=== PATIENT | female | born 1990 | race Caucasian/White ===

== ENCOUNTER 2016-09-22 14:37 | Inpatient (IN) | payer OTHER ==
[~2016-09-22] VITALS: Ht 167.6 cm; Wt 81.6 kg
[2016-09-23 11:16] LABS: *URINE HCG, QUAL NEGATIVE (NEGATIVE)
[2016-09-23 11:26] LABS: *AMPHETAMINE, URINE POSITIVE (NEGATIVE); *BARBITURATE, URINE NEGATIVE (NEGATIVE); *CANNABINOID, URINE NEGATIVE (NEGATIVE); *COCCAINE, URINE NEGATIVE (NEGATIVE); *OPIATE, URINE POSITIVE (NEGATIVE); *PHENCYCLIDINE SCREEN,URINE NEGATIVE (NEGATIVE)
[2016-09-23 11:40] VITALS: BP 117/67
--- NOTE | 2016-09-23 11:40 | NUR ---
INTAKE ASSESSMENT Patient is 25yo female patient presented for admission for supervised withdrawal from heroin and meth. Vital signs: 117/67, HR 75, R 18, 02 sat 96% RA, pain 7/10. Patient complains body aches and states "I am starting to get sick." Denies tremors, sweating, n/v at this time. Nicole routines explained to patient (i.e q4h vital, medication handling including narcotics , disposal of any contraband. Patient was tearful when informed about q4hr vital signs as she has problem sleeping. Patient was informed that the Md will be notified of her concern. Patient appears to be stable to proceed with her admission to [facility] for further care. Addendum: 09/23/16 at 1213 by SANIA COTTO RN Patient has no home meds.
--- NOTE | 2016-09-23 12:30 | NUR ---
ADMISSION NOTE Patient is 25 yr old female admitted at 11:40am for supervised opiate withdrawal. Patient is alert and oriented X4, full code, allergic to sulfa drugs, penicillin and amoxicillin. On fall precaution, no history of seizure. Denies SOB, chest pain, skin is intact. Patient has old scars on the bilateral anterior aspect of feet, pt. states a glass landed on both feet few years ago). Gait is steady and ambulates independently. Patient is able to respond to questions, cooperative during the admission interview. Denies suicidal or homicidal ideation at this time. Initial COWS is 8. Complained of body aches 9/10, anxiety, stomach cramps, restlessness, mild tremors. Patient was oriented to unit, room and call lights, oriented to unit routines and activity groups, and provided with hygiene supplies. Pt stated he has no PCP at this time. Substance use history per patient report: 1) Heroin - Patient started using at age 20. Patient was using 1gram/day since 11/2015 by inhalation. Last use was 09/22/16, used 0.5 gram. 2) Meth - Patient started using at age 25. Patient was using 0.3 gram/day since 01/2016 by inhalation. Last use was 09/21/16, used 0.3 gram. Rehab history: 1) [facility] in [place] for 9/5 months starting Nov 2013. 2) Patient reports she attended other rehab programs but could not recall the names of facilities and dates.
[2016-09-23] MEDS ORDERED: ONDANSETRON 4 MG/2 ML VIAL IM PRN (12:45)
[2016-09-23] MEDS ORDERED: diphenhydrAMINE 50 MG CAPSULE PO PRN (12:45)
[2016-09-23] MEDS ORDERED: ACETAMINOPHEN 325 MG TABLET PO PRN (12:45)
[2016-09-23] MEDS ORDERED: BUPRENORPHINE HCL 2 MG TAB.SUBL SL PRN (12:45)
[2016-09-23] MEDS ORDERED: LOPERAMIDE HCL 2 MG CAPSULE PO PRN ×2 (12:45)
[2016-09-23] MEDS ORDERED: MAGNESIUM HYDROXIDE 30 ML LIQUID UDC PO PRN (12:45)
[2016-09-23] MEDS ORDERED: MIRALAX 17 GM POWD.PACK PO PRN (12:45)
[2016-09-23] MEDS ORDERED: MAG HYDROX/AL HYDROX/SIMETH 30 ML LIQUID UDC PO PRN (12:45)
[2016-09-23] MEDS: HYDROXYZINE PAMOATE 25 MG CAPSULE PO PRN (15:12)
[2016-09-23] MEDS: GABAPENTIN 300 MG CAPSULE PO SCH (15:12)
[2016-09-23] MEDS: METHOCARBAMOL 750 MG TABLET PO PRN (15:13)
[2016-09-23] MEDS: ONDANSETRON ODT 4 MG TAB.RAPDIS SL PRN (15:13)
--- NOTE | 2016-09-23 15:13 | NUR ---
PRN VISTARIL, ROBAXIN AND ONDANSETRON Patient complained of anxiety, sweating, body aches 9/10 and nausea. COWS is 9 at this time. Will continue to monitor patient.
[2016-09-23 15:31] LABS: BASOPHILS % (AUTO) 0.3 % (0.0-2.0); EOSINOPHILS # (AUTO) 0.1 K/uL (0.0-0.7); EOSINOPHILS % (AUTO) 0.9 % (0.0-7.0); HEMATOCRIT 41.1 % (37-47); HEMOGLOBIN 14.2 G/DL (12.0-16.0); LYMPHOCYTES # (AUTO) 2.1 K/uL (20.0-40.0); LYMPHOCYTES % (AUTO) 26.3 % (20.5-51.5); MEAN CORPUSCULAR HEMOGLOBIN 31.2 UUG (27.0-31.0); MEAN CORPUSCULAR HGB CONC 35 g/dL (32.0-37.0); MEAN CORPUSCULAR VOLUME 90.2 FL (81.0-99.0); MONOCYTES # (AUTO) 0.7 K/uL (2.0-10.0); MONOCYTES % (AUTO) 8.7 % (0.0-11.0); NEUTROPHILS # (AUTO) 5.2 K/uL (1.8-8.9); NEUTROPHILS % (AUTO) 63.8 % (38.5-71.5); PLATELET COUNT (AUTO) 260 K/UL (150-450); RED BLOOD CELL COUNT(AUTO) 4.56 MIL/UL (4.2-5.4); WHITE BLOOD COUNT (AUTO) 8.1 K/UL (4.0-11.2)
[2016-09-23 15:59] LABS: ALANINE AMINOTRANSFERASE 15 U/L (14-59); ALKALINE PHOSPHATASE 54 U/L (50-136); ASPARTATE AMINOTRANSFERASE 17 U/L (15-37); BILIRUBIN,TOTAL 0.3 mg/dL (0.2-1.0); CARBON DIOXIDE 28 mmol/L (21-32); CHLORIDE 107 mmol/L (98-107); CREATININE 0.9 mg/dL (0.6-1.3); GFR 76 mL/min (>60); GLUCOSE 87 mg/dL (74-106); MAGNESIUM 1.8 mg/dL (1.8-2.4); POTASSIUM 3.6 mmol/L (3.5-5.1); SODIUM SERUM 144 mmol/L (136-145); UREA NITROGEN, BLOOD 13 mg/dL (7-18)
[2016-09-23 16:00] VITALS: BP 108/57
[2016-09-23 16:07] LABS: ETHANOL < 3 MG/DL (0-0); THYROID STIMULATING HORMONE 1.182 mIU/mL (0.358-3.740)
--- NOTE | 2016-09-23 16:10 | NUR ---
REASSESSMENT (PRN VISTARIL, ROBAXIN AND ONDANSETRON) Patient reports anxiety is about the same, body aches is now 6/10 and nausea improved.
[2016-09-23] MEDS: CLONIDINE HCL 0.1 MG TABLET PO PRN (16:48)
--- NOTE | 2016-09-23 16:48 | NUR ---
PRN CLONIDINE Patient complains of anxiety. Vital signs: 108/57, HR 71. Will continue to monitor patient.
--- NOTE | 2016-09-23 17:45 | NUR ---
REASSESSMENT PRN CLONIDINE Patient is laying in bed with eyes closed, no respiratory distress noted. PRN effective.
[2016-09-23 18:15] LABS: HIV-1 p24 ANTIGEN NON REACTIVE (NONREACTIVE); HIV-1/2 ANTIBODY NON REACTIVE (NONREACTIVE)
--- NOTE | 2016-09-23 18:41 | NUR ---
END OF SHIFT Patient is 25 yr old female admitted for supervised opiate and methamphetamine withdrawals. Patient is alert and oriented X4, full code, allergic to sulfa drugs, penicillin and amoxicillin. On fall precaution, no history of seizure. Denies SOB, chest pain, skin is intact, gait is steady and ambulates independently. Most recent assessment: COWS: 9 (pt. reports anxiety, sweating and body aches. Patient is laying in her bed for the most part. PRN robaxin, ondansetron, vistaril and clonidine given. No BM since admission. Able to eat about 25% lunch and 50%. All needs met. 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
--- NOTE | 2016-09-23 19:55 | NUR ---
Start of Shift Note: Report received from day shift nurse. Pt is a 25 yo female admitted on 09/23/16 for medically-supervised withdrawal from opiates and methamphetamines. Pt reports drinking 750mL to 1.5L rum daily for 4 months. Pt also reports daily use of marijuana. Pt is to start a 4-day Subutex taper tomorrow morning. Last day shift COWS=9. Pt reports allergy to PCN, sulfa, amoxicillin. Pt is on a regular diet. Pt reports med hx: anxiety. Pt received in room with c/o anxiety and chills, noted to be diaphoretic, flushed, pupils 5mm. Bed is in low position and locked, side rails up x2, call light within reach. Will continue to monitor. Addendum: 09/25/16 at 0539 by LENARD PRESLEY RN Incorrect substance use hx: pt using heroin 1gm/day for 11 months and methamphetamine 0.3gm/day for 9 months. No MJ Hx.
[2016-09-23 20:00] VITALS: BP 92/48
[2016-09-23] MEDS ORDERED: GABAPENTIN 300 MG CAPSULE PO SCH (21:00)
[2016-09-23] MEDS: TRAZODONE 50 MG TABLET PO PRN (21:06)
--- NOTE | 2016-09-23 21:06 | NUR ---
PRN Trazodone: Patient complains of inability to sleep. Non-pharmacological measures not effective. Administered PRN Trazodone as ordered. Will continue to monitor.
--- NOTE | 2016-09-23 22:06 | NUR ---
PRN Reassessment: Patient is in bed with eyes closed. Respirations are even and unlabored. No s/s of acute distress noted. PRN Trazodone effective as evidenced by patient's ability to rest. Will continue to monitor.
[2016-09-24] VITALS (7 sets, daily range): BP systolic 95–127; BP diastolic 62–96
--- NOTE | 2016-09-24 | NUR ---
COWS Deferred: Ordered COWS Q4HWA deferred while patient sleeps. VS: 98.1, 71, 14, 99%, 120/69. All safety precautions are in place. Will continue to monitor. Addendum: 09/24/16 at 0040 by LENARD PRESLEY RN Amended: Links added.
--- NOTE | 2016-09-24 04:00 | NUR ---
COWS Deferred: COWS is deferred for sleep. V/S stable. All safety precautions are in place. Will continue to monitor. Addendum: 09/24/16 at 0547 by LENARD PRESLEY RN Amended: Links added.
--- NOTE | 2016-09-24 07:09 | NUR ---
End of Shift Note: Pt is a 25 yo female admitted to [facility] on 09/23/16 for medically-supervised withdrawal from opiates and methamphetamine. Pt reports PMHx: anxiety. Pt reports allergy to PCN, sulfa, amoxicillin. Pt is on a regular diet. Pt reports drinking 750-1500mL rum daily for 4 months. Pt also reports daily use of marijuana. Pt is to start a 4-day Subutex taper today. Scheduled medication regime managed s/s of withdrawal this shift and PRN Benadryl was given for inability to sleep. Last COWS=6 at 20:00. V/S stable throughout shift. Total fluid intake this shift: 396 ml; output: urine x 0 and BM x 0. Pt currently in bed and 11 hours this shift. Pt endorsed to day shift nurse. Addendum: 09/25/16 at 0539 by LENARD PRESLEY RN Incorrect substance use hx: pt using heroin 1gm/day for 11 months and methamphetamine 0.3gm/day for 9 months. No MJ Hx.
--- NOTE | 2016-09-24 07:30 | NUR ---
Start of shift note; Received report from night nurse. Patient is a 25 year old female admitted on 09/23/16 for Heroin and Methamphetamine dependence. Patient was placed on 4 day Subutex taper to start today. Patient reported history of anxiety. Patient is allergic to Sulfa drugs, Amoxicillin and Penicillin. ON full code status and on regular diet. Patient is on fall precaution. Bed in lowest position, call light within reach. Will continue to monitor patient.
[2016-09-24] MEDS: BUPRENORPHINE HCL 2 MG TAB.SUBL SL SCH ×3 (08:53→21:07)
[2016-09-24] MEDS: DOCUSATE SODIUM 250 MG CAPSULE PO SCH (08:53)
[2016-09-24] MEDS: MULTIVITAMINS,THERAPEUTIC TABLET PO SCH (08:53)
[2016-09-24] MEDS: GABAPENTIN 300 MG CAPSULE PO SCH ×3 (08:53→21:07)
[2016-09-24] MEDS ORDERED: TUBERCULIN,PURIF.PROT.DERIV. 5 TU/0.1 ML TEST ID ONE (09:00)
[2016-09-24] MEDS ORDERED: 4 DAY TAPER BUPRENORPHINE -SERENITY PROTOCOL SL PRN (09:00)
[2016-09-24] MEDS: HYDROXYZINE PAMOATE 25 MG CAPSULE PO PRN ×2 (09:12→21:07)
[2016-09-24] MEDS: METHOCARBAMOL 750 MG TABLET PO PRN ×2 (09:12→21:07)
[2016-09-24] MEDS: CLONIDINE HCL 0.1 MG TABLET PO PRN ×3 (09:12→23:01)
--- NOTE | 2016-09-24 09:12 | NUR ---
PRN medications; Patient appears to be anxious and agitated, complaining of chills, diaphoreses, muscle aches and slight tremors with current COWS score of 12. PRN Clonidine 0.1mg PO PRN given for agitation, chills and diaphoreses. PRN Robaxin 750mg PO PRN given for muscle aches and PRN Vistaril PO PRN given given for anxiety. Will continue to monitor for effectiveness of medication.
--- NOTE | 2016-09-24 10:12 | NUR ---
Re-assessment; Patient appears to be less agitated, decrease in chills, sweating, muscle aches noted. PRN medications were effective. Will continue to monitor patient.
[2016-09-24 13:06] LABS: HCV AB <0.1 s/co ratio (0.0-0.9); HEPATITIS B CORE AB, IgM Negative (Negative); HEPATITIS B SURFACE AG Negative (Negative)
[2016-09-24] MEDS: BACLOFEN 20 MG TABLET PO SCH ×2 (14:34→16:44)
--- NOTE | 2016-09-24 16:44 | NUR ---
PRN medication; Patient noted to be agitated, complaining of chills and diaphoresis. PRN Clonidine 0.1mg PO PRN given. Will continue to monitor patient.
--- NOTE | 2016-09-24 17:44 | NUR ---
Re-assessment; Patient appears to be calm and verbalized decrease in chills and diaphoresis. PRN medication is effective.
--- NOTE | 2016-09-24 18:12 | NUR ---
End of shift note; Patient is AOX4. Patient is a 25 year old female admitted on 09/23/16 for Heroin and Methamphetamine dependence. Patient was placed on 4 day Subutex taper to start today. Patient reported history of anxiety. Patient is allergic to Sulfa drugs, Amoxicillin and Penicillin. On full code status and on regular diet. Patient is on fall precaution. Patient remained compliant with treatment plan. Medications were effective in reducing withdrawal symptoms. Met all needs.
--- NOTE | 2016-09-24 20:00 | NUR ---
Start of Shift Note: Report received from day shift nurse. Pt is a 25 yo female admitted for medically-supervised withdrawal from opiates and methamphetamine. Pt reports using 1gm heroin daily for 11 months and 0.3gm daily for 9 months. Pt is on day 1 of a 4-day Subutex taper. Pt received with last day shift COWS=7, and PRN's Clonidine x2, Robaxin, and Vistaril were given during day shift. New order for routine Baclofen today. Pt reports allergy to PCN, sulfa, amoxicillin. Pt is on a regular diet. Pt reports med hx: anxiety. Pt received in room and reports anxiety, diaphoresis, chills, lower back myalgia, restlessness, and tremor. Bed is in low position and locked, side rails up x2, call light within reach. Will continue to monitor.
[2016-09-24] MEDS: TRAZODONE 50 MG TABLET PO PRN (21:07)
--- NOTE | 2016-09-24 21:09 | NUR ---
PRN's Robaxin, Vistaril, and Trazodone: Patient complains of myalgia in lower back. Administered PRN Robaxin as ordered. Patient complains of increased anxiety. Non-pharmacological measures not effective. Administered PRN Vistaril as ordered. Patient complains of inability to sleep. Administered PRN Trazodone as ordered. Will continue to monitor.
--- NOTE | 2016-09-24 22:10 | NUR ---
PRN Reassessment: Patient reports that myalgia in back is now at a manageable level. PRN Robaxin effective. Patient reports that she is still feeling mildly anxious, and it is preventing sleep. PRN's Vistaril and Trazodone not effective. Non-pharmacological measures for anxiety reduction encouraged, and will administer PRN Clonidine when available from Q6H last dose.
[2016-09-24] MEDS: ONDANSETRON ODT 4 MG TAB.RAPDIS SL PRN (23:01)
--- NOTE | 2016-09-24 23:03 | NUR ---
PRN Zofran and PRN Clonidine: Patient complains of nausea. Pt denies any episodes of emesis. Administered PRN Zofran ODT as ordered. Patient complains of increased anxiety. Administered PRN Clonidine as ordered. Will continue to monitor.
--- NOTE | 2016-09-24 23:35 | NUR ---
PRN Zofran Reassessment: Patient denies nausea at this time. PRN Zofran ODT effective. Will continue to monitor.
[2016-09-25] VITALS: BP 95/50
--- NOTE | 2016-09-25 | NUR ---
COWS Deferred: COWS assessment is deferred for sleep. V/S stable at this time. All safety precautions are in place. Will continue to monitor. Addendum: 09/25/16 at 0221 by LENARD PRESLEY RN Amended: Links added.
--- NOTE | 2016-09-25 00:05 | NUR ---
PRN Clonidine Reassessment: Patient is in bed with eyes closed. Respirations are even and unlabored. No s/s of acute distress noted. PRN Clonidine effective as evidenced by patient's ability to rest. Will continue to monitor.
[2016-09-25 04:00] VITALS: BP 94/55
--- NOTE | 2016-09-25 04:00 | NUR ---
COWS Deferred: COWS assessment is deferred for sleep. V/S stable. No acute distress noted. All safety precautions are in place. Will continue to monitor. Addendum: 09/25/16 at 0521 by LENARD PRESLEY RN Amended: Links added.
--- NOTE | 2016-09-25 06:59 | NUR ---
End of Shift Note: Pt is a 25 yo female admitted on 09/23/16 for medically-supervised withdrawal from opiates and methamphetamine. Pt reports using 1gm heroin daily for 11 months and 0.3gm methamphetamine daily for 9 months. Pt is to start day 2 of a 4-day Subutex taper. Scheduled medication regime managed s/s of withdrawal this shift, in addition to PRN Clonidine and PRN Vistaril for anxiety, PRN Robaxin for myalgia, and PRN Zofran for nausea. PRN Trazodone was given for inability to sleep. Last COWS=8 at 20:00. V/S stable throughout shift, with elevated HR of 86 at 20:00. Total fluid intake this shift: 591 ml; output: urine x 1 and BM x 0. Pt currently in bed and 6 hours this shift. Pt endorsed to day shift nurse.
--- NOTE | 2016-09-25 07:00 | NUR ---
Start of Shift Notes: Received patient in her room. Alert and oriented x 4. Verbally responsive. Able to make his needs known. Respirations even and unlabored. No SOB noted. Skin warm and dry to touch. Abdomen soft and non-distended. BS (+) in all 4 quadrants. No complains of N/V/D or constipation noted. Voids independently. Ambulatory ad ann marie with steady gait. Patient is a 25 year old female admitted for opiate and methamphetamine dependence who was placed on a 4-day Subutex taper as ordered. No adverse reactions noted. Has past medical hx of anxiety. FULL CODE. Regular diet. Allergic to sulfa, PCN and amoxicillin. Educated patient on her current plan of care for the day and her medication regimen. Encouraged oral fluid intake and encouraged group participation to learn new skills to prevent relapse. Will continue to monitor closely.
[2016-09-25 08:00] VITALS: BP 107/63
[2016-09-25] MEDS: GABAPENTIN 300 MG CAPSULE PO SCH ×3 (08:53→21:39)
[2016-09-25] MEDS: DOCUSATE SODIUM 250 MG CAPSULE PO SCH (08:53)
[2016-09-25] MEDS: MULTIVITAMINS,THERAPEUTIC TABLET PO SCH (08:53)
[2016-09-25] MEDS: BACLOFEN 20 MG TABLET PO SCH ×3 (08:53→16:29)
[2016-09-25] MEDS ORDERED: BUPRENORPHINE HCL 2 MG TAB.SUBL SL SCH (09:00)
[2016-09-25 12:00] VITALS: BP 125/71
[2016-09-25] MEDS: CLONIDINE HCL 0.1 MG TABLET PO PRN ×2 (13:43→22:43)
--- NOTE | 2016-09-25 13:44 | NUR ---
Clonidine 0.1mg PO given: Patient noted with complain anxiety, agitation, and chills. VS stable. Unable to be redirected with non-pharmacological intervention. Medicated patient with Clonidine 0.1mg PO as ordered. Will monitor for effectiveness.
[2016-09-25] MEDS: BUPRENORPHINE HCL 2 MG TAB.SUBL SL SCH ×2 (14:15→21:40)
[2016-09-25 16:00] VITALS: BP 117/73
[2016-09-25] MEDS: HYDROXYZINE PAMOATE 25 MG CAPSULE PO PRN (16:29)
--- NOTE | 2016-09-25 16:30 | NUR ---
Vistaril 50 mg PO given: Patient noted with complain of anxiety. PRN Clonidine was ineffective. VS stable. Medicated patient with Vistaril 50 mg PO as ordered. Will monitor for effectiveness.
--- NOTE | 2016-09-25 17:30 | NUR ---
Re-assessment: Per patient, PRN Vistaril was effective in reducing patient's anxiety.
--- NOTE | 2016-09-25 18:43 | NUR ---
End of Shift Notes: Patient is a 25 year old female admitted for opiate and methamphetamine depedence who was placed on a 4-day Subutex taper as ordered. No adverse reactions noted. Has past medical hx of anxiety. Prior to admission, patient was using 1 gram of Heroin daily and 0.3 grams of methamphetamine daily. VS monitored closely. No significant abnormalities noted. Withdrawal symptoms were closely monitored. Patient presented with anxiety, chills, hot flashes, sweats, muscle aches and pains. Initial COWS 5, Last COWS 5. Medicated patient with Clonidine 0.1mg PO at 1340 for anxiety, chills and agitation with help after 1 hour. Vistaril PO was given at 1630 due to anxiety with help after 1 hour. Per patient, Subutex has been helping her with her withdrawal symptoms. Patient was able to participate in group. Oral fluids encouraged. All needs met and attended. Will continue to monitor closely.
[2016-09-25 20:00] VITALS: BP 120/76
--- NOTE | 2016-09-25 20:00 | NUR ---
Start of Shift Pt is a 25 year old female admitted for Opiate/meth dependence, placed on 4 day Subutex taper. Pt reported using Heroin 1/g daily and Meth 0.3g/daily. PMH: Anxiety. Pt is allergic to PCN, Sulfa , Amoxicillin. Upon assessment, pt presents with anxiety, chills, muscle aches, restlessness, and tremors felt upon touch, skin flushed/clammy, respirations even/unlabored, denies SOB/chest pain, denies n/v/d, bowel sounds active x4, abdomen soft. Safety measures in place, call light within reach, side rails up x2, bed locked and in low position. Will continue to monitor.
[2016-09-25] MEDS: IBUPROFEN 600 MG TABLET PO PRN (21:48)
[2016-09-25] MEDS: METHOCARBAMOL 750 MG TABLET PO PRN (21:48)
--- NOTE | 2016-09-25 21:48 | NUR ---
PRN Administration Pt reported muscle aches and back pain rated 7/10. Robaxin 750mg PRN and Motrin 600mg PRN administered. Safety measures in place, will continue to monitor.
[2016-09-25] MEDS: TRAZODONE 50 MG TABLET PO PRN (22:41)
--- NOTE | 2016-09-25 22:43 | NUR ---
PRN Reassessment/PRN Administration Upon Reassessment, Pt rated back pain 4/10 and subsiding. Pt reports mild relief of muscle aches, reports feeling anxiety with restlessness and difficulty falling asleep. Trazodone 50mg PRN and Clonidine 0.1 mg PRN administered. Safety measures in place, will continue to monitor.
--- NOTE | 2016-09-25 23:43 | NUR ---
PRN Reassessment Upon reassessment, pt is in bed, eyes closed, resting with respirations even and unlabored, no acute s/s of distress noted. Safety measures in place, will continue to monitor.
[2016-09-26] VITALS: BP 112/60
[2016-09-26] MEDS: HYDROXYZINE PAMOATE 25 MG CAPSULE PO PRN ×2 (00:44→20:03)
--- NOTE | 2016-09-26 00:44 | NUR ---
PRN Administration Pt reports feeling anxious, requests relief. Vistaril 50mg PRN administered. Safety measures in place, will continue to monitor.
--- NOTE | 2016-09-26 01:44 | NUR ---
PRN Reassessment Upon reassessment, Pt is resting, eyes closed, respirations even/unlabored, no acute distress noted. Safety measures in place, will continue to monitor.
[2016-09-26 04:00] VITALS: BP 109/68
--- NOTE | 2016-09-26 04:00 | NUR ---
Vital Signs BP 109/68, pulse 69, respirations 14, SpO2 98%, temp 98, no pain 0/10 COWS assessment deferred d/t pt sleeping, to assess while pt is awake as ordered. Safety measures in place, will continue to monitor.
--- NOTE | 2016-09-26 07:00 | NUR ---
End of Shift Pt is a 25 year old female admitted for Opiate/meth dependence, placed on 4 day Subutex taper. Pt reported using Heroin 1/g daily and Meth 0.3g/daily. PMH: Anxiety. Pt is allergic to PCN, Sulfa , Amoxicillin. During shift, pt presented with anxiety, chills, muscle aches, restlessness, and tremors felt upon touch, skin flushed/clammy - scheduled taper medications administered, COWS 4. Motrin 600mg PRN and Robaxin 750mg PRN administered for back pain and muscle aches. Trazodone 50mg PRN, Clonidine 0.1mg PRN and Vistaril 50mg PRN administered for reports of feeling anxiety/restless and difficulty falling asleep - medications effective. VS stable, Pt slept for 5 hours, intake of 1055ml PO and voids x0. Safety measures in place, call light within reach, side rails up x2, bed locked and in low position. Endorsed to day shift nurse.
--- NOTE | 2016-09-26 07:08 | NUR ---
Start of Shift Endorsement received to nightshift nurse. Pt is a 25 y/o female admitted for Heroin and Meth dependence. Pt has been placed on a 4 day Subutex taper. Pt is mildly withdrawing at this time AEB COWS 4 at midnight. Pt received PRN Motrin, Robaxin, Clonidine and Vistaril during nightshift. Pt reports sleeping 5 hours. VS WNL. Full Code. . PT is alert and oriented x4. Pt is in STABLE condition at this time. Remains compliant with medication and diet regimen. All needs have been met, All safety measures in place per hospital policy. Bed in lowest position, side rails up x2, call-light within reach. Will continue to monitor
[2016-09-26 08:00] VITALS: BP 103/63
[2016-09-26] MEDS: DOCUSATE SODIUM 250 MG CAPSULE PO SCH (08:54)
[2016-09-26] MEDS: MULTIVITAMINS,THERAPEUTIC TABLET PO SCH (08:54)
[2016-09-26] MEDS: BACLOFEN 20 MG TABLET PO SCH ×3 (08:54→17:05)
[2016-09-26] MEDS: BUPRENORPHINE HCL 2 MG TAB.SUBL SL SCH ×3 (08:54→20:04)
[2016-09-26] MEDS ORDERED: GABAPENTIN 300 MG CAPSULE PO SCH (09:00)
[2016-09-26] MEDS ORDERED: BACLOFEN 20 MG TABLET PO PRN (10:45)
--- NOTE | 2016-09-26 11:15 | NUR ---
PRN Toradol PT reports 8/10 lower back and generalized pain. Administered Toradol 30mg. Will re-evaluate.
[2016-09-26] MEDS: KETOROLAC TROMETHAMINE 30 MG INJ IM PRN (11:18)
--- NOTE | 2016-09-26 11:45 | NUR ---
Medication Re-assessment Medication was effective, pt reports 2/10 pain at this time.
[2016-09-26 12:00] VITALS: BP 95/59
[2016-09-26] MEDS: DICYCLOMINE HCL 20 MG TABLET PO PRN ×2 (14:14→23:19)
[2016-09-26] MEDS: GABAPENTIN 300 MG CAPSULE PO SCH ×2 (14:14→20:03)
[2016-09-26 16:00] VITALS: BP 132/78
--- NOTE | 2016-09-26 17:03 | NUR ---
PRN Medication Pt reports constipation, chills and anxiety. Administered PRN Clonidine and Miralax. Will re-assess.
[2016-09-26] MEDS: CLONIDINE HCL 0.1 MG TABLET PO PRN ×2 (17:05→23:20)
--- NOTE | 2016-09-26 17:45 | NUR ---
Medication Re-assessment Clonidine was effective, pt reports relief from chills and rates anxiety 2/10 down from 5/10. Pt has not had a BM yet.
--- NOTE | 2016-09-26 19:22 | NUR ---
End of Shift Endorsement given to nightshift nurse. Pt is a 25 y/o female admitted for Heroin and Meth dependence. Pt has been placed on a 4 day Subutex taper. Pt is mildly withdrawing at this time AEB COWS 6 at 1600. Pt received PRN Clonidine, Bentyl and Miralax. Dr. Cunha has added Baclofen to her medications. Adminsitered PRN Toradol for 8/10 back pain, medication was effective. Educated pt on medications and S/E. Educated pt on diet regimen to help improve BM pattern and prevent future constipation. VS WNL. Full Code. . PT is alert and oriented x4. Pt is in STABLE condition at this time. Remains compliant with medication and diet regimen. All needs have been met, All safety measures in place per hospital policy. Bed in lowest position, side rails up x2, call-light within reach. Will continue to monitor
[2016-09-26 20:00] VITALS: BP 124/76
--- NOTE | 2016-09-26 20:00 | NUR ---
Start of Shift Pt is a 25 year old female admitted for Opiate/meth dependence, placed on 4 day Subutex taper. Pt reported using Heroin 1/g daily and Meth 0.3g/daily. PMH: Anxiety. Pt is allergic to PCN, Sulfa , Amoxicillin. Upon assessment, pt presents with anxiety,abdominal cramping, restlessness, skin flushed, respirations even/unlabored, denies SOB/chest pain, denies n/v/d, bowel sounds active x4, abdomen soft. Safety measures in place, call light within reach, side rails up x2, bed locked and in low position. Will continue to monitor.
--- NOTE | 2016-09-26 20:03 | NUR ---
PRN Administration Pt reports feeling anxious. Non-pharmacological methods ineffective. Vistaril 50mg PRN administered. Safety measures in place. Will continue to monitor.
--- NOTE | 2016-09-26 21:03 | NUR ---
PRN Reassessment Upon reassessment, pt states, "I feel less anxious". Pt sitting in bed, watching television, no s/s of acute distress noted. Needs met. Safety measures in place. Will continue to monitor.
[2016-09-26] MEDS: TRAZODONE 50 MG TABLET PO PRN (23:19)
[2016-09-26] MEDS: ONDANSETRON ODT 4 MG TAB.RAPDIS SL PRN (23:20)
[2016-09-26] MEDS: METHOCARBAMOL 750 MG TABLET PO PRN (23:20)
--- NOTE | 2016-09-26 23:20 | NUR ---
PRN Administration Pt reports anxiety, muscle aches, abdominal cramping, nausea, and difficulty falling asleep. Zofran 4mg ODT PRN, Bentyl 20mg PRN, Clonidine 0.1mg PRN, Robaxin 750mg PRN and Trazodone 50mg PRN administered. Safety measures in place. Will continue to monitor.
[2016-09-27] VITALS: BP 129/74
--- NOTE | 2016-09-27 00:20 | NUR ---
PRN Reassessment Upon reassessment, pt is sleeping, respirations even/unlabored, no s/s of acute distress noted. Safety measures in place, will continue to monitor.
[2016-09-27 04:00] VITALS: BP 98/67
--- NOTE | 2016-09-27 04:00 | NUR ---
Vital Signs BP 98/67, pulse 78, respirations 16, SpO2 99%, temp 98, no pain 0/10 COWS assessment deferred d/t pt sleeping, to assess while pt is awake as ordered. Safety measures in place, will continue to monitor.
--- NOTE | 2016-09-27 07:00 | NUR ---
End of Shift Pt is a 25 year old female admitted for Opiate/meth dependence, placed on 4 day Subutex taper. Pt reported using Heroin 1/g daily and Meth 0.3g/daily. PMH: Anxiety. Pt is allergic to PCN, Sulfa , Amoxicillin. During shift, pt presented with anxiety,abdominal cramping, restlessness, skin flushed - scheduled taper medications administered, COWS 5. At 2002, Vistaril 50mg PRN administered for anxiety, effective as reported by pt. At 2319, Zofran 4mg ODT PRN, Bentyl 20mg PRN, Clonidine 0.1mg PRN, Robaxin 750mg PRN and Trazodone 50mg PRN administered for reports of anxiety, muscle aches, abdominal cramping, nausea and difficulty falling asleep. Upon reassessment, pt was noted to be sleeping, eyes closed, no s/s of acute distress. Pt slept for 5 hours, intake of 1250 ml PO and voids x1. Safety measures in place, call light within reach, side rails up x2, bed locked and in low position. Endorsed to day shift nurse.
--- NOTE | 2016-09-27 07:00 | NUR ---
Start of Shift Endorsement received to nightshift nurse. Pt is a 25 y/o female admitted for Heroin and Meth dependence. Pt has been placed on a 4 day Subutex taper. Pt is mild to moderately withdrawing at this time AEB COWS 5 at midnight. Pt received PRN Vistaril, Zofran, Bentyl, Clonidine, Robaxin and Trazodone during nightshift. Pt reports sleeping 5 hours. Pt reports feeling tired and anxious due to be being on her last day on the Subutex taper. VS WNL. Full Code. . PT is alert and oriented x4. Pt is in STABLE condition at this time. Remains compliant with medication and diet regimen. All needs have been met, All safety measures in place per hospital policy. Bed in lowest position, side rails up x2, call-light within reach. Will continue to monitor
[2016-09-27 08:00] VITALS: BP 102/66
[2016-09-27] MEDS ORDERED: BUPRENORPHINE HCL 2 MG TAB.SUBL SL SCH (09:00)
--- NOTE | 2016-09-27 09:00 | NUR ---
PRN Medication Pt reports 10/30 anxiety and requests Vistaril. Administered PRN Vistaril 50mg. Will re-assess.
[2016-09-27] MEDS: GABAPENTIN 300 MG CAPSULE PO SCH ×3 (09:01→20:58)
[2016-09-27] MEDS: DOCUSATE SODIUM 250 MG CAPSULE PO SCH (09:01)
[2016-09-27] MEDS: BACLOFEN 20 MG TABLET PO SCH ×3 (09:02→17:36)
[2016-09-27] MEDS: MULTIVITAMINS,THERAPEUTIC TABLET PO SCH (09:02)
[2016-09-27] MEDS: HYDROXYZINE PAMOATE 25 MG CAPSULE PO PRN ×2 (09:02→20:57)
--- NOTE | 2016-09-27 09:30 | NUR ---
Medication Re-assessment Pt reports decrease in anxiety, rating it 2/10 at this time. Medication was effective.
[2016-09-27] MEDS: KETOROLAC TROMETHAMINE 30 MG INJ IM PRN (11:18)
[2016-09-27 12:00] VITALS: BP 122/69
[2016-09-27] MEDS: CLONIDINE HCL 0.1 MG TABLET PO PRN ×2 (13:43→21:58)
--- NOTE | 2016-09-27 13:43 | NUR ---
PRN Clonidine PT requests PRN Clonidine due to chills and anxiety. will re-assess.
[2016-09-27] MEDS ORDERED: MAGNESIUM CITRATE 296 ML BOTTLE PO ONE (14:00)
--- NOTE | 2016-09-27 14:10 | NUR ---
Medication re-assessment Pt reports relieve from chills and decreased anxiety from 5/10 to 2/10 at this time.
[2016-09-27 16:00] VITALS: BP 125/65
[2016-09-27 18:51] LABS: *AMPHETAMINE, URINE NEGATIVE (NEGATIVE); *BARBITURATE, URINE NEGATIVE (NEGATIVE); *CANNABINOID, URINE NEGATIVE (NEGATIVE); *COCCAINE, URINE NEGATIVE (NEGATIVE); *OPIATE, URINE POSITIVE (NEGATIVE); *PHENCYCLIDINE SCREEN,URINE NEGATIVE (NEGATIVE)
--- NOTE | 2016-09-27 19:21 | NUR ---
End of Shift Endorsement given to nightshift nurse. Pt is a 25 y/o female admitted for Heroin and Meth dependence. Pt has been placed on a 4 day Subutex taper. Pt is mildly withdrawing at this time AEB COWS 5 at 1600. Pt received PRN Clonidine, Vistaril and one time order of magnesium citrate. Medications were effective, pt had a BM at 1800. Administered PRN Toradol for 9/10 back pain, medication was effective. Educated pt on medications and S/E. Educated pt on deep breathing technique and reinforced teaching on diet regimen, patient continue to not eat any greens or fiber rich foods. Intake: 3030ml, Void x4, BM x1. VS WNL. Full Code. . PT is alert and oriented x4. Pt is in STABLE condition at this time. Remains compliant with medication and diet regimen. All needs have been met, All safety measures in place per hospital policy. Bed in lowest position, side rails up x2, call-light within reach. Will continue to monitor
[2016-09-27] MEDS ORDERED: CLON0.1T14 PO (19:58)
[2016-09-27] MEDS ORDERED: Ibuprofen PO (19:58)
[2016-09-27] MEDS ORDERED: HYDR-3895 PO (19:58)
[2016-09-27] MEDS ORDERED: TRAZ-144 PO (19:58)
[2016-09-27] MEDS ORDERED: Gabapentin PO (19:58)
[2016-09-27] MEDS ORDERED: DICY20TA28 PO (19:58)
[2016-09-27] MEDS ORDERED: Baclofen PO (19:58)
[2016-09-27 20:00] VITALS: BP 118/83
--- NOTE | 2016-09-27 20:00 | NUR ---
Start of Shift Pt is a 25 year old female admitted for Opiate/meth dependence, placed on 4 day Subutex taper, completed. Pt reported using Heroin 1/g daily and Meth 0.3g/daily. PMH: Anxiety. Pt is allergic to PCN, Sulfa , Amoxicillin. Upon assessment, pt presents with anxiety, skin flushed, respirations even/unlabored, denies SOB/chest pain, denies n/v/d, bowel sounds active x4, abdomen soft. Pt is scheduled for discharge tomorrow. Safety measures in place, call light within reach, side rails up x2, bed locked and in low position. Will continue to monitor
[2016-09-27] MEDS: METHOCARBAMOL 750 MG TABLET PO PRN (20:57)
--- NOTE | 2016-09-27 20:57 | NUR ---
PRN Administration Pt reports muscle aches and feeling anxious. Robaxin 750mg PRN and Vistaril 50mg PRN administered. Safety measures in place. Will continue to monitor.
--- NOTE | 2016-09-27 21:57 | NUR ---
PRN Reassessment/Administration Upon reassessment, pt continues to report anxiety and requests aid to help her sleep. Clonidine 0.1mg PRN and Trazodone 50mg PRN administered. Safety measures in place. Will continue to monitor.
[2016-09-27] MEDS: TRAZODONE 50 MG TABLET PO PRN (21:58)
--- NOTE | 2016-09-27 22:57 | NUR ---
PRN Reassessment Upon reassessment, pt is noted to be resting in bed, eyes closed, respirations even/unlabored. Safety measures in place. Will continue to monitor.
[2016-09-28] VITALS: BP 113/64
--- NOTE | 2016-09-28 01:38 | NUR ---
PRN Administration Pt reports, "I can't sleep. My body still aches". Baclofen 20mg PRN administered. Safety measures in place. Will continue to monitor.
--- NOTE | 2016-09-28 02:38 | NUR ---
PRN Reassessment Upon reassessment, pt is resting, eyes closed, no s/s of acute distress noted, respiration even/unlabored. Safety measures in place, will continue to monitor.
[2016-09-28 04:00] VITALS: BP 98/62
--- NOTE | 2016-09-28 04:00 | NUR ---
Vital Signs BP 98/62, pulse 80, respirations 16, SpO2 98%, temp 98.1, no pain 0/10 COWS assessment deferred d/t pt sleeping, to assess while pt is awake as ordered. Safety measures in place, will continue to monitor.
--- NOTE | 2016-09-28 07:00 | NUR ---
End of Shift Pt is a 25 year old female admitted for Opiate/meth dependence, placed on 4 day Subutex taper, completed. Pt reported using Heroin 1/g daily and Meth 0.3g/daily. PMH: Anxiety. Pt is allergic to PCN, Sulfa , Amoxicillin. During shift, pt presented with anxiety, skin flushed - scheduled medications administered along with Robaxin 750mg PRN, Vistaril 50mg PRN, Clonidine 0.1mg PRN and Trazodone 50mg PRN for muscle aches, anxiety and sleep, effective. At 0138, Baclofen 20mg PRN administered for muscle/body aches, effective. Pt is scheduled for discharge today. VS stable, no acute s/s of withdrawal noted, COWS 3. Pt slept for 4 hours, intake of 1210ml PO and voids x1. Safety measures in place, call light within reach, side rails up x2, bed locked and in low position. Endorsed to day shift nurse.
--- NOTE | 2016-09-28 07:15 | NUR ---
Start of shift note Pt was admitted for opiate dependence and methamphetamine use. Pt has completed a 4 day subutex taper successfully without any ASE. Pt has an allergy to sulfa and PCN. Pt has a PMHX of anxiety. Pt is scheduled to discharge today. pt states that she feels ready for discharge. Pt has no complaints at this time. Will continue to monitor pt. All needs addressed at this time.
[2016-09-28 08:00] VITALS: BP 110/63
[2016-09-28 08:58] VITALS: BP 110/62
[2016-09-28] MEDS: MULTIVITAMINS,THERAPEUTIC TABLET PO SCH (08:58)
[2016-09-28] MEDS: BACLOFEN 20 MG TABLET PO SCH (08:58)
[2016-09-28] MEDS: GABAPENTIN 300 MG CAPSULE PO SCH (08:58)
[2016-09-28] MEDS: IBUPROFEN 600 MG TABLET PO PRN (08:58)
[2016-09-28] MEDS: CLONIDINE HCL 0.1 MG TABLET PO PRN (08:58)
[2016-09-28] MEDS: DOCUSATE SODIUM 250 MG CAPSULE PO SCH (08:58)
--- NOTE | 2016-09-28 09:00 | NUR ---
PRN administration Pt states that she has pain 4/10 as body aches and anxiety. Administered PRN motrin and PRN clonidine per MD order. Will continue to monitor pt.
--- NOTE | 2016-09-28 09:43 | NUR ---
Discharge note Pt was admitted for opiate dependence. pt has a COWS of 2. VS are WNL Pt states that the medications were effective in reducing her pain to a level of 1/10 and that her anxiety has decreased to an acceptable level. Pt LBM was 09/27/16. Pt verbalized her understanding of the discharge instructions. Pt states that she feels ready for discharge. Pt has no further complaints at this time. Pt ID band removed, pt ambulated off of unit with [employer], left facility via [facility] [employer].
== END 2016-09-28 09:43 | disposition other institution (70) | DRG 895 ==
LOC: SRC 09-23 10:54
PROVIDERS: ADMIT Internal Medicine; ATTEND Internal Medicine
PROC: HZ2ZZZZ Detoxification Services for Substance Abuse Treatment (ICD-10-PCS; principal; 2016-09-23)
PROC: HZ31ZZZ Individual Counseling for Substance Abuse Treatment, Behavioral (ICD-10-PCS; 2016-09-25)
PROC: HZ41ZZZ Group Counseling for Substance Abuse Treatment, Behavioral (ICD-10-PCS; 2016-09-26)
DX: F11.23 Opioid dependence with withdrawal (principal); F15.20 Other stimulant dependence, uncomplicated; Z88.1 Allergy status to other antibiotic agents; Z88.0 Allergy status to penicillin; Z88.2 Allergy status to sulfonamides; F41.9 Anxiety disorder, unspecified; F17.210 Nicotine dependence, cigarettes, uncomplicated
CPT/HCPCS: 36415; 70030-TC; 80307; 80324; 80361; 83735; 84443; 84703; 85025; 86580; 86592; 86705; 86803; 87340; 87806; G6040-TC; J1885; Q0162